=== PATIENT | male | born 1975 | race Caucasian/White ===

== ENCOUNTER 2022-09-04 09:42 | Day surgery (SDC) | payer BC ==
[~2022-09-04] VITALS: Ht 404.9 cm; Wt 87.4 kg
[2022-09-04] MEDS ORDERED: FLOMAX 0.40.4 MG/CAP PO (10:44)
[2022-09-04 11:25] VITALS: BP 143/83; PULSE 77; TEMP 98.1
[2022-09-04 13:55] VITALS: BP 139/84; PULSE 84; TEMP 97.5
--- NOTE | 2022-09-04 13:55 | NUR ---
PT TRANSPORTED TO [facility] VIA STRETCHER, A&O, DENIES PAIN, C/O MILD HEADACHE. REPORT RECEIVED FROM ELMER MARMOLEJO. SPOUSE AT BEDSIDE. PT REQUESTS WATER AND PUDDING AT THIS TIME. CALL LAWLER WITHIN REACH; SAFETY MAINTAINED.
--- NOTE | 2022-09-04 14:01 | NUR ---
PT AMBULATED TO BR WITH ASSISTANCE WELL.
[2022-09-04 14:25] VITALS: BP 129/78; PULSE 73
--- NOTE | 2022-09-04 14:25 | NUR ---
PT URINATED WITHOUT DIFFICULTY. DISCHARGE INSTRUCTIONS GIVEN TO PT AND SPOUSE; UNDERSTANDING VERBALIZED; QUESTIONS ANSWERED.
[2022-09-04 14:40] VITALS: BP 125/83; PULSE 73
--- NOTE | 2022-09-04 15:00 | NUR ---
PT TRANSPORTED OUT OF DEPT VIA WC IN STABLE CONDITION WITH ESCROW PROCESSOR PRESENT.
== END 2022-09-04 15:00 | disposition home or self-care (01) ==
LOC: SDCO 09:42
DX: N20.2 Calculus of kidney with calculus of ureter (principal)
CPT/HCPCS: C1769; C2617; J0690; J1100; J2405; J2704; J3010